=== PATIENT | male | born 1985 | race Caucasian/White ===

== ENCOUNTER 2018-05-15 12:04 | Emergency (ER) | payer OTHER ==
[~2018-05-15] VITALS: Ht 165.1 cm; Wt 55.8 kg
[2018-05-15 12:21] VITALS: BP 125/80; Ht 165.1 cm; Wt 55.8 kg
== END 2018-05-15 14:00 | disposition home or self-care (01) ==
LOC: ED 12:04
DX: J02.9 Acute pharyngitis, unspecified (principal); F17.210 Nicotine dependence, cigarettes, uncomplicated
CPT/HCPCS: 99406